=== PATIENT | male | born 1995 | race Caucasian/White ===

== ENCOUNTER 2019-01-21 17:41 | Emergency (ER) | payer MEDICAID ==
[2019-01-21 17:45] VITALS: BP 118/72
--- NOTE | 2019-01-21 18:18 | ER Report ---
History and Physical Time Seen By MD: 18:18 Hx. of Stated Complaint: right ear feels clogged since wednesday. no pain HPI/ROS CHIEF COMPLAINT: Right ear pressure HISTORY OF PRESENT ILLNESS: This is a 23-year-old male presents to the emergency department for right ear pressure. Patient states that for the last 3-4 days he's had increased pressure in his right ear, states it feels "clogged". [place], feels increased pressure this evening. Patient has had an upper respiratory type infection for about the last week. No fevers or chills. No nausea vomiting. No pain in the ear. No chest pain or shortness of breath. No tinnitus. Mild sore throat otherwise unremarkable. REVIEW OF SYSTEMS: ENT: As above. Respiratory: No cough, no dyspnea. Cardiovascular: No chest pain, no palpitations. Gastrointestinal: No vomiting, no abdominal pain. Musculoskeletal: No back pain. Allergies: Coded Allergies: No Known Drug Allergies (Unverified , 01/21/19) Past Medical/Surgical History The patient has no sick and past medical or surgical history. Reviewed Nurses Notes: Yes Hx Substance Use Disorder: No Hx Alcohol Use: Yes Constitutional Vital Sign - Last 24 Hours 01/21/19 17:45 Temp 97.8 Pulse 50 Resp 16 B/P (MAP) 118/72 Pulse Ox 93 O2 Delivery Room Air Physical Exam General Appearance: The patient is alert, has no immediate need for airway protection and no current signs of toxicity. Eyes: Pupils equal and round no injection. ENT: Bilateral TMs bulging, no erythema or injection, cone of light noted, landmarks noted. No cerumen impaction. Mild erythema to the posterior oropharynx. No tonsillar hypertrophy or exudates. Respiratory: Chest is non tender, lungs are clear to auscultation. Cardiac: regular rate and rhythm. Gastrointestinal: Abdomen is soft and non tender, no masses, bowel sounds normal. Musculoskeletal: Neck: Neck is supple and non tender. Extremities have full range of motion and are non tender. Skin: No rashes or lesions. DIFFERENTIAL DIAGNOSIS: After history and physical exam differential diagnosis was considered for cerumen impaction, ear infection, eustachian tube dysfunction, upper respiratory infection. Medical Decision Making ED Course/Re-evaluation ED Course Patient was admitted to room. A history and physical were obtained. Differential diagnoses were considered. After examination patient was determined that he did not have otitis media or a cerumen impaction, I believe that he has a station tube dysfunction which is causing pressure in both of his ears, primarily the right ear, he denies significant pain, he states that this is more of an a nnoyance. He does have upper respiratory congestion, I did recommend Flonase in bilateral nares twice a day for the next 5 days, also take Claritin or Zyrtec and continue with sinus rinses. Patient was in agreement with this plan of care and was discharged home. Decision to Disposition Date: Jan 21, 2019 Decision to Disposition Time: 18:34 Depart Departure Latest Vital Signs Vital Signs Date Time Temp Pulse Resp B/P (MAP) Pulse Ox O2 Delivery O2 Flow Rate FiO2 01/21/19 17:45 97.8 50 16 118/72 93 Room Air Impression: Primary Impression: Pressure sensation in right ear Condition: Improved Disposition: HOME OR SELF-CARE Patient Instructions: Upper Respiratory Infection (ED) Additional Instructions: There is no sign of infection or cerumen impaction. I believe this is secondary to the upper respiratory infection that she had causing a eustachian tube dysfunction. Use the Flonase, one spray in each nostril twice a day for the next 5 days. Try Claritin or Zyrtec for the next 7 days. Continue with sinus rinses. Drink plenty of fluids. Get plenty of rest. Follow-up with student [facility] in 5-7 days if no improvement. Return to the ER for any other concerns or worsening symptoms. KM [employer]-BC Jan 21, 2019 18:18
[2019-01-21] MEDS ORDERED: FLUTICASONE PROP 0.05% 16 GM ONE (18:25)
== END 2019-01-21 18:47 | disposition home or self-care (01) ==
LOC: ER 17:45
DX: H92.01 Otalgia, right ear (principal)
CPT/HCPCS: 99282